=== PATIENT | female | born 1955 | race Caucasian/White ===

== ENCOUNTER → 2020-11-01 | Outpatient (CLI) | payer BC ==
--- NOTE | 2020-11-04 10:56 | MAM ---
EXAM DESCRIPTION: 3D Screening BILATERAL : Digital Mammography. CLINICAL HISTORY: 65 years Female ANNUAL SCREENING . No complaints. Remote family history of breast cancer. [place] age 17. No childbirth. Menopause age 56. Lifetime risk of developing breast cancer (Tyrer-Cuzick model)(%): 6.6. COMPARISON: Baseline study at this facility. No prior reports available. TECHNIQUE: Bilateral CC and MLO projection full-field images, digital tomosynthesis mammographic technique. Bilateral digital 2-D Full-Field MLO images. CAD available for 2-D images. FINDINGS: The breast parenchymal density pattern is: Heterogeneously dense breast tissue, which may obscure small masses. Axillary nodes. Circumscribed masses with rim and internal calcifications bilaterally. Solitary microcalcifications. Coarse microcalcifications. Partially circumscribed densities with same density as surrounding fibroglandular tissues in the middle third of the right breast at the 9:00 position and in the third of the left breast in the 3:00 position, less than 1 cm diameter. No skin thickening or nipple retraction No new focal, stellate mass or density, focal asymmetry , and no suspicious microcalcifications left breast. IMPRESSION: BI-RADS CATEGORY: 0 - INCOMPLETE- Need additional imaging evaluation. RECOMMENDATIONS: FOLLOW-UP: Recall for additional imaging: Right breast Full - Field two-dimensional and tomosynthesis imaging lateral medial projection, and directed right breast ultrasound.. Written communication concerning the IMPRESSION and Follow-up, will be mailed to the patient and referring health care provider. Electronically signed by: Ric Reynoso MD 11/04/2020 10:54 AM [facility]
== END ==
LOC: MAMMO 08:21
PROVIDERS: ATTEND Nurse Practitioner Family
DX: Z12.31 Encounter for screening mammogram for malignant neoplasm of breast (principal)